=== PATIENT | female | born 1955 | race Caucasian/White ===

== ENCOUNTER → 2016-08-25 | Outpatient (CLI) | payer BC ==
[~2016-08-25] MED LIST: CLEOCIN HC150 MG/CAP PO; FLEXERIL 1010 MG/TAB PO; FLEXERIL10 MG PO; LORTAB 5/500 501 TAB PO; MULTI VITAMINS1 TAB PO; MVI PO; NORCO 325 MG-51 TAB PO; PRILOSEC 20MG20 MG PO; TEGRETOL 2200 MG/TA1 PO
== END ==
LOC: MC.RAD 10:30
DX: Z12.31 Encounter for screening mammogram for malignant neoplasm of breast (principal)

== ENCOUNTER → 2017-09-10 | Outpatient (CLI) | payer BC | LOC: MC.RAD 12:46 | DX: Z12.31 Encounter for screening mammogram for malignant neoplasm of breast (principal) ==

== ENCOUNTER 2018-06-23 06:16 | Emergency (ER) | payer BC ==
[~2018-06-23] VITALS: Ht 172.7 cm; Wt 97.7 kg
[2018-06-23 06:21] VITALS: BP 149/82; PULSE 68; TEMP 98.5
[2018-06-23] MEDS ORDERED: ASPIRIN E.C. 8181 MG PO (06:28)
[2018-06-23] MEDS ORDERED: KRILL OIL 1,001 EAC1 PO (06:28)
[2018-06-23] MEDS ORDERED: STOOL SOFTENER100 M2 PO (06:29)
[2018-06-23] MEDS ORDERED: VITAMIND3 5000 PO (06:30)
[2018-06-23] MEDS ORDERED: MELATONIN5 M1 PO (06:30)
[2018-06-23] MEDS ORDERED: LEXAPRO 10MG10 MG PO (06:31)
[2018-06-23] MEDS ORDERED: LIPITOR20 MG PO (06:34)
[2018-06-23] MEDS ORDERED: CLEOCIN HC150 MG/CAP PO (06:42)
== END 2018-06-23 06:55 | disposition home or self-care (01) ==
LOC: COL.ER 06:16
DX: K02.9 Dental caries, unspecified (principal)

== ENCOUNTER → 2018-10-07 | Outpatient (CLI) | payer BC ==
[~2018-10-07] MED LIST changes: +ASPIRIN E.C. 8181 MG PO; +KRILL OIL 1,001 EAC1 PO; +LEXAPRO 10MG10 MG PO; +LIPITOR20 MG PO; +MELATONIN5 M1 PO; +STOOL SOFTENER100 M2 PO; +VITAMIND3 5000 PO
== END ==
LOC: MC.RAD 11:06
DX: Z12.31 Encounter for screening mammogram for malignant neoplasm of breast (principal)

== ENCOUNTER 2021-08-29 13:00 | Outpatient (RCR) | payer MEDICARE, BC ==
[2021-08-19 13:20] VITALS: BP 132/80; PULSE 76; TEMP 98.4
[2021-08-21 13:09] VITALS: BP 130/83; PULSE 90; TEMP 97.8
[2021-08-23 14:23] VITALS: BP 133/78; PULSE 82; TEMP 97.6
[2021-08-27 13:11] VITALS: BP 129/77; PULSE 76; TEMP 98.3
[~2021-08-29] VITALS: Ht 172.7 cm; Wt 117.0 kg
[2021-08-29 13:06] VITALS: BP 123/83; PULSE 88; TEMP 97.8
== END 2021-08-29 13:30 | disposition home or self-care (01) ==
LOC: EUO 13:00
DX: D64.9 Anemia, unspecified (principal); R79.89 Other specified abnormal findings of blood chemistry
CPT/HCPCS: J1756